=== PATIENT | female | born 2005 | race Asian ===

== ENCOUNTER 2023-09-02 11:51 | Emergency (ER) | payer OTHER, SELFPAY ==
[2023-09-02 12:16] VITALS: BP 123/78; PULSE 66; RESP 18; TEMP 37; O2SAT 98; BMI 21.9
[2023-09-02 12:20] VITALS: BP 119/76; PULSE 71; RESP 16; TEMP 37; O2SAT 97
--- NOTE | 2023-09-02 12:51 | ED_ITS ---
HPI - Ear Problem <Jasmine Wolf PA-C - Last Filed: 09/02/23 12:58> General Chief complaint: Ear Stated complaint: Can't hear from left ear. Time Seen by Provider: 09/02/23 12:41 Source: patient Mode of arrival: Ambulatory History of Present Illness HPI Narrative: Patient is 18 year old with three days of diminished hearing from left ear. No ear pain or ear drainage. Also endorses nasal congestion, one day of sore throat. No fever, chills, cough, N/V. Patient took a decongestant once. Has allergies to cats, which they live with. Patient vapes daily. Related Data Allergies Allergy/AdvReac Type Severity Reaction Status Date / Time No Known Drug Allergies Allergy Verified 09/02/23 12:16 Review of Systems <Jasmine Wofl PA-C - Last Filed: 09/02/23 12:58> Review of Systems ROS Unobtainable: All systems reviewed & are unremarkable except as noted in HPI and below Patient History <Jasmine Wolf PA-C - Last Filed: 09/02/23 12:58> Social History Smoking Status: Current every day smoker Smoking Status: Current every day smoker tobacco type: vaping alcohol intake frequency: holidays/special occasions only Substance Use Type: does not use Exam <Jasmine Wolf PA-C - Last Filed: 09/02/23 12:58> Narrative Exam Narrative: GENERAL: 18 year old patient appears stated age. Well-developed patient, in no distress. NEURO: AOx3. HEAD: Atraumatic. Normocephalic. EYES: Pupils equal round and reactive. Extraocular motions intact. No scleral icterus. No injection or drainage. ENT: Nose without bleeding or purulent drainage. Throat with mild erythema, no tonsillar hypertrophy or exudate. Airway patent. Bilateral TMs bulging with clear fluid, left greater than right. No erythema of TMs or drainage in the canal. No mastoid tenderness or swelling. NECK: Trachea midline. Non tender CARDIOVASCULAR: Regular rate and rhythm without murmurs, gallops, or rubs. RESPIRATORY: Clear to auscultation. Breath sounds equal bilaterally. SKIN: No rash or erythema of visible areas Initial Vital Signs Initial Vital Signs: Vital Signs Temperature 98.6 F 09/02/23 12:16 Pulse Rate 66 09/02/23 12:16 Respiratory Rate 18 09/02/23 12:16 Blood Pressure 123/78 09/02/23 12:16 Pulse Oximetry 98 09/02/23 12:16 Oxygen Delivery Method Room Air 09/02/23 12:16 <Oren Mcconnell MD - Last Filed: 09/08/23 08:11> Initial Vital Signs Initial Vital Signs: Vital Signs Temperature 98.6 F 09/02/23 12:16 Pulse Rate 66 09/02/23 12:16 Respiratory Rate 18 09/02/23 12:16 Blood Pressure 123/78 09/02/23 12:16 Pulse Oximetry 98 09/02/23 12:16 Oxygen Delivery Method Room Air 09/02/23 12:16 Course <Jasmine Wolf PA-C - Last Filed: 09/02/23 12:58> Vital Signs Vital signs: Vital Signs - 8 hr 09/02/23 12:16 Temperature 98.6 F Pulse Rate 66 Respiratory Rate 18 Blood Pressure 123/78 Pulse Oximetry 98 Oxygen Delivery Method Room Air <Oren Mcconnell MD - Last Filed: 09/08/23 08:11> Vital Signs Vital signs: Vital Signs - 8 hr 09/02/23 12:16 Temperature 98.6 F Pulse Rate 66 Respiratory Rate 18 Blood Pressure 123/78 Pulse Oximetry 98 Oxygen Delivery Method Room Air Medical Decision Making <Jasmine Wolf PA-C - Last Filed: 09/02/23 12:58> MDM Narrative Medical decision making narrative: Multiple etiologies for patient's symptoms considered including, but not limited to: Viral upper respiratory infection, acute otitis media, otitis externa, streptococcal pharyngitis, eustachian tube dysfunction. Patient appears well and physical exam is very reassuring. Suspect serous otitis media secondary to upper respiratory viral infection and suggested ove [id number] treatments. Follow up with PCP if not improved after 7-10 days. Patient's symptoms improved over duration of stay with above-stated therapies. Findings and discharge diagnosis discussed with patient/family followed by verbalization of understanding Return precautions discussed with patient/family whom verbalize understanding of diagnosis and plan Discharge Plan Departure Patient Disposition: Home Clinical Impression: Acute serous otitis media of left ear Qualifiers: Recurrence: non-recurrent Qualified Code(s): H65.02 - Acute serous otitis media, left ear Instructions: Antihistamine/Decongestant (By mouth) Activity Restrictions/Additional Instructions: *You have been diagnosed with sinus and ear congestion secondary to viral upper respiratory infection. I would suggest using 2 [id number] medicines, 1 is Sudafed which is a pill that helps with congestion. And a 2nd which is called Flonase or fluticasone propionate, which is an intranasal steroid that can help decrease the swelling and inflammation in your sinuses and ears. Drink lots of water, rest and I think you will be feeling better in 7-10 days. *What to do: *Please continue to take your regular medications as directed. [ ] New medication prescriptions sent to your pharmacy: [ ] [ ] New medication written as a paper prescription [x] No new medications given *Please follow up with your primary care provider in 2-3 days, call for an appointment. Let them know you were seen in the Emergency Department and that we ask that you be seen in follow up. We will electronically transmit a record of today's note if your PCP is in our system *If you do not have a primary care provider please contact the [facility] Resource line at [phone]. They will ask some questions about your medical history and help get you set up with a doctor in the community. *Return to Emergency Department if you should have any new, worsening or concerning symptoms, such as [fever greater than 101 F, shaking chills, worsening pain, persistent vomiting or other concerning symptoms]. Referrals: ProviderSelene [Primary Care Provider] - Stand Alone Forms: Patient Portal/API ED Sign-out <Oren Mcconnell MD - Last Filed: 09/08/23 08:11> [facility]: I was immediately available in the department for consultation. ?This documentation has been reviewed and I agree with assessment and plan. Supervised by Oren Mcconnell MD
== END 2023-09-02 13:00 | disposition home or self-care (01) ==
PROVIDERS: Emergency Provider Physician Assistant
DX: H65.02 Acute serous otitis media, left ear (principal)
CPT/HCPCS: 99281